=== PATIENT | male | born 1955 | race African-American/Black ===

== ENCOUNTER 2022-10-13 15:13 | Emergency (ER) | payer MEDICARE, OTHER ==
[~2022-10-13] VITALS: Ht 190.5 cm; Wt 86.2 kg
--- NOTE | 2022-10-13 15:54 | NUR ---
@[email or web address], medical screening exam in progress
[2022-10-13] MEDS ORDERED: KETOROLAC TROMETHAMINE 30 MG INJ IM ONE (16:00)
[2022-10-13] MEDS ORDERED: ACETAMINOPHEN 325 MG TABLET PO ONE (16:00)
[2022-10-13] MEDS ORDERED: DIAZEPAM 2 MG TABLET PO ONE (16:00)
[2022-10-13] MEDS ORDERED: KETOROLAC TROMETHAMINE 30 MG INJ ONE (16:04)
[2022-10-13] MEDS ORDERED: ACETAMINOPHEN ES 500 MG TABLET ONE (16:04)
[2022-10-13] MEDS ORDERED: DIAZEPAM 2 MG TABLET ONE (16:05)
[2022-10-13] MEDS ORDERED: CYCL5TAB PO (16:46)
--- NOTE | 2022-10-13 16:54 | NUR ---
Patient is not found in his room. Dr Jara reported that she discharged the patient herself.
== END 2022-10-13 16:55 | disposition home or self-care (01) ==
LOC: ER 15:13
DX: G89.29 Other chronic pain (principal); M54.50 Low back pain, unspecified; R20.0 Anesthesia of skin
CPT/HCPCS: 99283; 96372; J1885; A4663; A9150

== ENCOUNTER 2022-10-15 10:58 | Emergency (ER) | payer MEDICARE, OTHER ==
[~2022-10-15] VITALS: Ht 185.4 cm; Wt 81.6 kg
[~2022-10-15 10:58] MED LIST: CYCL5TAB PO
[2022-10-15] MEDS ORDERED: LIDOCAINE 5% PATCH TD ONE ×2 (11:15→11:20)
[2022-10-15] MEDS ORDERED: KETOROLAC TROMETHAMINE 15 MG INJ IM ONE (11:15)
[2022-10-15] MEDS ORDERED: DIAZEPAM 2 MG TABLET PO ONE (11:15)
[2022-10-15] MEDS ORDERED: DEXAMETHASONE SOD PHOSPHATE 4 MG INJ IM ONE (11:15)
[2022-10-15] MEDS ORDERED: KETOROLAC TROMETHAMINE 15 MG INJ ONE (11:20)
[2022-10-15] MEDS ORDERED: DEXAMETHASONE SOD PHOSPHATE 10 MG INJ ONE (11:20)
[2022-10-15] MEDS ORDERED: DIAZEPAM 5 MG TABLET ONE (11:21)
--- NOTE | 2022-10-15 11:28 | NUR ---
DECADROM IM IN RIGHT BUTTOCKS TORADOL IM IN LEFT BUTTOCKS
[2022-10-15] MEDS ORDERED: MORPHINE SULFATE 4 MG/1 ML DISP.SYRIN ONE (12:59)
[2022-10-15] MEDS ORDERED: MORPHINE SULFATE 4 MG/1 ML DISP.SYRIN IM ONE (13:00)
[2022-10-15] MEDS ORDERED: PRED20TA PO (15:01)
--- NOTE | 2022-10-15 15:01 | NUR ---
PATIENT STATES PAIN HAS DIMINISHED.
--- NOTE | 2022-10-15 15:18 | NUR ---
DC, Rx and Follow up instructions given and explained to patient who states he understands all instructions
--- NOTE | 2022-10-15 16:00 | NUR ---
to drive him home
== END 2022-10-15 16:18 | disposition home or self-care (01) ==
LOC: ER 10:59
DX: M54.41 Lumbago with sciatica, right side (principal); G89.29 Other chronic pain
CPT/HCPCS: 99284; 72131; 96372 ×2; J1100; J1885; J2270; A4663